=== PATIENT | female | born 1965 | race Hispanic/Latino ===

== ENCOUNTER → 2018-02-08 | Outpatient (CLI) | payer BC ==
[~2018-02-08] MED LIST: ASPI-1012 PO; CELE200 PO; FERR324T10 PO; OXYC5 PO; PREG25 PO
== END | disposition home or self-care (01) ==
LOC: RAH 09:29
PROVIDERS: ATTEND Family Medicine
DX: Z12.31 Encounter for screening mammogram for malignant neoplasm of breast (principal)
CPT/HCPCS: 77067

== ENCOUNTER 2023-04-20 08:00 | Day surgery (SDC) | payer BC ==
[2023-04-20] VITALS (14 sets, daily range): BP systolic 110–149; BP diastolic 55–71; PULSE 54–62; RESP 15–17
[~2023-04-20] VITALS: Ht 154.9 cm; Wt 81.6 kg
[~2023-04-20 08:00] MED LIST changes: -ASPI-1012 PO; +ATOR10TA69 PO; -CELE200 PO; -FERR324T10 PO; +LOSA50TA64 PO; -OXYC5 PO; -PREG25 PO
[2023-04-20] MEDS ORDERED: PROPOFOL 10 MG/ML 20ML VIAL IV ONE (10:30)
== END 2023-04-20 12:10 ==
LOC: ENDO 08:00 → DAH 08:00 → ENDO 12:10
PROVIDERS: ATTEND Internal Medicine
DX: Z12.11 Encounter for screening for malignant neoplasm of colon (principal); D12.0 Benign neoplasm of cecum; K62.1 Rectal polyp; R10.32 Left lower quadrant pain; I10 Essential (primary) hypertension; M19.90 Unspecified osteoarthritis, unspecified site; E13.9 Other specified diabetes mellitus without complications; Z86.010 Personal history of colon polyps; Z79.01 Long term (current) use of anticoagulants; Z79.899 Other long term (current) drug therapy; Z80.0 Family history of malignant neoplasm of digestive organs; Z72.89 Other problems related to lifestyle; Z96.642 Presence of left artificial hip joint
CPT/HCPCS: 82948 ×2; 45380; J2704; A4620; A4215 ×2; A4223; A7002; A4222; A4221; A4663; A4216; J7030; A4606; J3490